=== PATIENT | male | born 1980 | race Caucasian/White ===

== ENCOUNTER 2017-02-12 15:07 | Emergency (ER) | payer OTHER ==
[~2017-02-12] VITALS: Ht 180.3 cm; Wt 88.0 kg
[2017-02-12 15:13] VITALS: TEMP 36.6; Ht 180.3 cm; Wt 88.0 kg
[2017-02-12] MEDS ORDERED: AMPH20TA2 PO (15:26)
[2017-02-12] MEDS ORDERED: ESCI10TA17 PO (15:26)
[2017-02-12] MEDS ORDERED: MULT-506 PO (15:26)
[2017-02-12] MEDS ORDERED: OMEP10CA4 PO (15:26)
--- NOTE | 2017-02-12 15:32 | EMERGENCY ROOM VISIT NOTE ---
ED Visit Note First contact with patient: 15:26 CHIEF COMPLAINT: Eye injury HISTORY OF PRESENT ILLNESS: This patient sustained an eye injury today when he threw a green wine bottle in the recycling bin and it broke and he felt a piece of glass go into his right eye. Since then there has been a constant moderate pain and irritation, redness and tearing in the eye. There is a mild blurring of vision at times and light bothers the eye. The vision has not been decreased over all. His tetanus is up-to-date. REVIEW OF SYSTEMS: Head: No headache, injury or neck pain. Neck: No pain, stiffness, or swelling. Neurological: No headache, new changes in mental status, vertigo, focal weakness, numbness. PMH: The patient is healthy; there is no significant medical or surgical history. SOCIAL HISTORY: Patient lives at home. PHYSICAL EXAM: Vital Signs: Reviewed Nurse's notes. GENERAL: This is a healthy- appearing person who is uncomfortable from the eye problem. The pupils are round, equal, and react to light. EOMs are full. There is discharge of clear tears from the injured eye which is injected. There is no foreign body visible under the eyelid even after lid eversion. No foreign body was seen embedded in the cornea. The cornea was clear and no hyphema was seen. Fluorescein uptake was observed with ultraviolet light at 4:00. EMERGENCY DEPARTMENT COURSE: The patient was initially seen and examined. I everted the eyelid and did not see any foreign body. I did a slit lamp exam as above and did not see any foreign body but did see a corneal abrasion at approximately 4:00. The patient was completely adamant that there must be a foreign body in his eye and stated he could feel it moving. I everted the eyelid on 2 additional occasions and performed another exam with the ophthalmoscope. I still could not see any foreign body. The patient insisted that he could feel it. There is negative Enrique sign. There is no abnormality in the pupil. The pain was completely gone after Alcaine was instilled. I suspect this is likely due to corneal abrasion and foreign body sensation. The patient was still quite adamant that there is a foreign body in his eye. At this time, Hieu lens irrigation was performed with 1 L of normal saline. The patient still insisted that there was a foreign body in his eye. I did look in the eye again and still could not see any foreign body. I asked Dr. bautista to evaluate the patient. She did a bedside ultrasound of the eye and also did not notice any foreign body. The patient will be placed on Ciloxan drops. He should contact ophthalmology tomorrow to schedule a follow-up appointment. He should return to the ER with any worsening symptoms. Current/Historical Medications Scheduled Amphetamine-Dextroamphetamine 20MG (Adderall 20MG), 20 MG PO BID Escitalopram (Lexapro), 15 MG PO QAM Multivitamin (Multivitamin), 1 TAB PO QAM Omeprazole (Prilosec), 10 MG PO QAM Allergies Coded Allergies: BEE STING (Verified Allergy, Severe, "AREA OF STING-EXTREME SWELLING" PER PT., 02/12/17) Vital Signs Date Time Temp Pulse Resp B/P (MAP) Pulse Ox O2 Delivery O2 Flow Rate FiO2 02/12/17 17:41 60 18 117/77 95 02/12/17 15:13 36.6 82 16 106/68 96 Room Air Medications Administered Medications (Trade) Dose Ordered Sig/Warren Route Start Time Stop Time Status Last Admin Dose Admin Ciprofloxacin HCl (Ciprofloxacin 0.3% Op Soln) 2 drops NOW ONCE OP 02/12/17 17:30 02/12/17 17:31 DC 02/12/17 17:38 2 DROPS Departure Information Impression Primary Impression: Corneal abrasion Dispostion Home / Self-Care Condition GOOD Referrals No Doctor, Assigned (PCP) Johnson Quinteros D.Tammy. Patient Instructions ED Eye Injury Corneal Abrasion, My [facility] Additional Instructions Use Ciloxan two drops in right/left eye every two hours while awake for two days ; then two drops every four hours while awake for three days. Use Ibuprofen 600 mg every 6 hours as needed for pain. Return to the ED or see your family doctor or eye doctor in 24-48 hours for a recheck. Return to the ED for increasing pain or changes in vision. Problem Qualifiers Primary Impression: Corneal abrasion Encounter type: initial encounter Laterality: right Qualified Codes: S05.01XA - Injury of conjunctiva and corneal abrasion without foreign body, right eye, initial encounter
[2017-02-12] MEDS ORDERED: PROPARACAINE HCL 0.5% OP SOLN 15 ML BTL ONE (15:33)
[2017-02-12] MEDS ORDERED: CIPROFLOXACIN HCL 0.3% OP SOLN 2.5 ML BTL OP ONE (17:30)
[2017-02-12 17:41] VITALS: BP 117/77; PULSE 60; O2SAT 95
== END 2017-02-12 17:38 | disposition home or self-care (01) ==
LOC: C.EDB 15:10 → C.EDD 17:38
DX: S05.01XA Injury of conjunctiva and corneal abrasion without foreign body, right eye, initial encounter (principal); W45.8XXA Other foreign body or object entering through skin, initial encounter